=== PATIENT | female | born 1945 ===

== ENCOUNTER 2020-12-23 10:47 | Observation (INO) ==
[~2020-12-23 10:47] MED LIST: Buffered Lidocaine 1% SYRIN 1 ml INTRADERM ONE; Ketamine HCL 50 mg/ml 10 ml VIAL (500 MG) ONE; Lactated Ringers 1000 ml BAG 1,000 ML IV SCH; Lidocaine 2% PF 5 ML VIAL ONE; Propofol 10 MG/ML 20 ML BTL ONE
[2020-12-23] MEDS ORDERED: Clindamycin 900 MG/D5W BAG 900 MG/50 ML BAG IVPB ONE (11:08)
[2020-12-23] MEDS ORDERED: oxyCODONE/Acetamin 5/325 mg TAB PO PRN (11:38)
[2020-12-23] MEDS ORDERED: Naloxone 0.4 mg VIAL 0.4 mg/ml 1 ml VIAL IV PRN (11:38)
[2020-12-23] MEDS ORDERED: fentaNYL 100 mcg/2 ml 50 MCG/ML VIAL ONE ×2 (11:48→14:59)
[2020-12-23] MEDS ORDERED: Midazolam 2 mg/2 ml VIAL 1 mg/ml 2 ml VIAL (2 mg) ONE ×2 (11:48→12:35)
[2020-12-23] MEDS ORDERED: Lidocaine 2% PF 10 ML AMP ONE (11:48)
[2020-12-23] MEDS ORDERED: Bupivacaine 0.5% SDV PF 30ML VIAL ONE (11:48)
[2020-12-23] MEDS ORDERED: Bupivacaine 0.25% SDV 30 ML ONE (11:48)
[2020-12-23] MEDS ORDERED: Ondansetron 4 mg VIAL 2 MG/ML 2 ml VIAL ONE ×2 (13:03→15:52)
[2020-12-23] MEDS ORDERED: Dexamethasone IV 4 MG/ML VIAL 1 ml VIAL ONE (13:03)
[2020-12-23] MEDS ORDERED: ROPIVACAINE 5 MG/ML 30 ML BTL (0.5%) ONE (13:22)
[2020-12-23] MEDS ORDERED: Magnesium Hydroxide LIQ 30 ML UDC PO PRN (14:40)
[2020-12-23] MEDS ORDERED: Ondansetron ODT 4 mg TAB 4 MG TAB PO PRN (14:40)
[2020-12-23] MEDS ORDERED: diPHENhydraMINE 25 mg TAB PO PRN (14:40)
[2020-12-23] MEDS ORDERED: Lactulose 30 ml UDC PO PRN (14:40)
[2020-12-23] MEDS ORDERED: Ondansetron 4 mg VIAL 2 MG/ML 2 ml VIAL IV PRN (14:40)
[2020-12-23] MEDS ORDERED: diPHENhydraMINE IV 50 MG/ML 1 ml VIAL (BENADRYL) IV PRN (14:40)
[2020-12-23] MEDS ORDERED: oxyCODONE/Acetamin 5/325 mg TAB ONE (15:00)
[2020-12-23] MEDS: fentaNYL 100 mcg/2 ml 50 MCG/ML VIAL IV PRN ×2 (15:01→15:15)
[2020-12-23] MEDS: Lactated Ringers 1000 ml BAG 1,000 ML IV SCH (16:41)
[2020-12-23] MEDS: Clindamycin 600 MG/D5W BAG 600 MG/50 ML BAG IV SCH (20:18)
[2020-12-23] MEDS: Magnesium Hydroxide LIQ 30 ML UDC PO SCH (21:40)
[2020-12-24] MEDS: Clindamycin 600 MG/D5W BAG 600 MG/50 ML BAG IV SCH ×2 (03:37→12:10)
[2020-12-24] MEDS: Lactated Ringers 1000 ml BAG 1,000 ML IV SCH (03:37)
[2020-12-24 05:13] LABS: Hematocrit 37 % (35-47); Hemoglobin 12.5 g/dL (12.0-16.0); Mean Platelet Volume 7.8 fL (7.4-10.4); Platelet Count 258 10^3/uL (150-450)
[2020-12-24 05:27] LABS: Calcium 8.5 mg/dL (8.6-10.3); EGFR African American 86.1 (>60); EGFR Non-African American 71.1 (>60); Potassium 4.1 mmol/L (3.5-5.0)
[2020-12-24] MEDS: Magnesium Hydroxide LIQ 30 ML UDC PO SCH (08:39)
[2020-12-24] MEDS ORDERED: Vitamin THERAPEUTIC TAB PO SCH (09:00)
[2020-12-24] MEDS ORDERED: NF: Multivitamins/Mins AREDS2 (NF) CAP PO SCH (09:00)
[2020-12-24 11:12] VITALS: BP 99/54
== END 2020-12-24 13:45 | disposition home or self-care (01) ==
LOC: OR 10:47 → SSU 10:47
PROVIDERS: ADMIT Orthopaedic Surgery Adult Reconstructive Orthopaedic Surgery; ATTEND Orthopaedic Surgery Adult Reconstructive Orthopaedic Surgery

== ENCOUNTER 2021-07-06 08:35 | Observation (INO) ==
[~2021-07-06 08:35] MED LIST changes: -Ketamine HCL 50 mg/ml 10 ml VIAL (500 MG) ONE; -Lidocaine 2% PF 5 ML VIAL ONE; -Propofol 10 MG/ML 20 ML BTL ONE; +Ropivacaine 5 MG/ML 20 ML VIAL 0.5% (100 MG) ONE
[2021-07-06] MEDS ORDERED: Ropivacaine 5 MG/ML 20 ML VIAL 0.5% (100 MG) ONE (09:03)
[2021-07-06] MEDS ORDERED: Clindamycin 900 MG/D5W BAG 900 MG/50 ML BAG IVPB ONE (09:09)
[2021-07-06] MEDS ORDERED: Midazolam 2 mg/2 ml VIAL 1 mg/ml 2 ml VIAL (2 mg) ONE (11:12)
[2021-07-06] MEDS ORDERED: Ondansetron 4 mg VIAL 2 MG/ML 2 ml VIAL ONE (11:12)
[2021-07-06] MEDS ORDERED: Lidocaine 2% PF 5 ML VIAL ONE (11:12)
[2021-07-06] MEDS ORDERED: Propofol 10 MG/ML 20 ML BTL ONE (11:12)
[2021-07-06] MEDS ORDERED: fentaNYL 100 mcg/2 ml 50 MCG/ML VIAL ONE ×2 (11:12→14:36)
[2021-07-06] MEDS ORDERED: Dexamethasone IV 4 MG/ML VIAL 1 ml VIAL ONE (11:12)
[2021-07-06] MEDS ORDERED: ROPIVACAINE 5 MG/ML 30 ML BTL (0.5%) ONE ×2 (11:19→13:09)
[2021-07-06] MEDS ORDERED: Phenylephrine IV 10 MG/ML 1 ml VIAL ONE (12:57)
[2021-07-06] MEDS ORDERED: Glycopyrrolate IV 0.2 MG/ML 1 ML VIAL ONE (12:57)
[2021-07-06] MEDS ORDERED: Ondansetron 4 mg VIAL 2 MG/ML 2 ml VIAL IV PRN (14:08)
[2021-07-06] MEDS ORDERED: diPHENhydraMINE IV 50 MG/ML 1 ml VIAL (BENADRYL) IV PRN (14:08)
[2021-07-06] MEDS ORDERED: Ondansetron ODT 4 mg TAB 4 MG TAB PO PRN (14:08)
[2021-07-06] MEDS ORDERED: diPHENhydraMINE 25 mg TAB PO PRN (14:08)
[2021-07-06] MEDS ORDERED: Lactulose 30 ml UDC PO PRN (14:08)
[2021-07-06] MEDS ORDERED: Morphine 2 MG/ML SYRINGE IV PRN (14:08)
[2021-07-06] MEDS ORDERED: Magnesium Hydroxide LIQ 30 ML UDC PO PRN (14:08)
[2021-07-06] MEDS ORDERED: Clindamycin 600 MG/D5W BAG 600 MG/50 ML BAG IV SCH (15:00)
[2021-07-06] MEDS: Lactated Ringers 1000 ml BAG 1,000 ML IV SCH (16:20)
[2021-07-06] MEDS: Magnesium Hydroxide LIQ 30 ML UDC PO SCH (20:07)
[2021-07-06] MEDS: Clindamycin 600 MG/D5W BAG 600 MG/50 ML BAG IV SCH (21:21)
[2021-07-07] MEDS: Clindamycin 600 MG/D5W BAG 600 MG/50 ML BAG IV SCH ×2 (04:40→11:19)
[2021-07-07] MEDS: Lactated Ringers 1000 ml BAG 1,000 ML IV SCH (05:49)
[2021-07-07 06:29] LABS: Hematocrit 35 % (35-47); Hemoglobin 11.5 g/dL (12.0-16.0); Mean Platelet Volume 7.2 fL (7.4-10.4); Platelet Count 273 10^3/uL (150-450)
[2021-07-07 06:58] LABS: Calcium 8.7 mg/dL (8.6-10.3); Potassium 3.9 mmol/L (3.5-5.0); eGFR CKD-EPI 93.2 (>60)
[2021-07-07] MEDS: Magnesium Hydroxide LIQ 30 ML UDC PO SCH (08:02)
[2021-07-07] MEDS ORDERED: Vitamin THERAPEUTIC TAB PO SCH (09:00)
[2021-07-07 11:07] VITALS: BP 104/52
== END 2021-07-07 12:40 | disposition home or self-care (01) ==
LOC: OR 08:35 → SSU 08:35
PROVIDERS: ADMIT Orthopaedic Surgery Adult Reconstructive Orthopaedic Surgery; ATTEND Orthopaedic Surgery Adult Reconstructive Orthopaedic Surgery